=== PATIENT | male | born 1965 | race Caucasian/White ===

== ENCOUNTER 2017-01-28 13:29 | Emergency (ER) | payer OTHER ==
[2017-01-28] MEDS ORDERED: Sodium Chloride 0.9% 1,000 ML IV STA (14:31)
[2017-01-28 14:51] LABS: BASO % 0.7 % (0.0-2.0); EOS % 0.8 % (0.0-4.0); HEMATOCRIT 41.7 % (35.0-51.0); LYMPH % 35.8 % (20.0-40.0); MEAN CELL VOLUME 83.1 fL (80.0-94.0); MEAN CORPUSCULAR HEMOGLOBIN 26.6 pg (27.0-31.0); MEAN PLATELET VOLUME 9.4 fL (7.2-11.7); MONO # 0.2 K/uL (0.0-0.8); MONO % 4.1 % (0.0-10.0); NRBC % 0.1 % (0.0-2.0); RED CELL DISTRIBUTION WIDTH 12.8 % (11.5-14.5); URINE BILIRUBIN NEGATIVE (NEGATIVE); URINE BLOOD NEGATIVE (NEGATIVE); URINE COLOR Straw (YELLOW); URINE GLUCOSE (UA) NORMAL (Normal); URINE KETONE NEGATIVE (NEGATIVE); URINE LEUKOCYTE ESTERASE NEG Leu/uL (Negative); URINE PROTEIN NEGATIVE (NEGATIVE); URINE UROBILINOGEN NORMAL mg/dL (0.2-1.0); WBC URINE < 1 /hpf (0-5); WHITE BLOOD COUNT 5.5 K/uL (4.8-10.8)
[2017-01-28 15:10] LABS: ALCOHOL SERUM < 10 mg/dl (0-10)
--- NOTE | 2017-01-28 15:11 | C.PDOC ---
History Of Present Illness 52 year old male presents to the ED with complaints of feeling dizzy at work today. 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 He then had some apple juice with some improvement and came for further evaluation. He notes his last check up was a year ago with no abnormal findings and denies headache, nausea, vomiting, visual changes, or any other complaints at this time. Time Seen by Provider: 01/28/17 13:54 Chief Complaint (Nursing): Dizziness/Lightheaded History Per: Patient History/Exam Limitations: no limitations Onset/Duration Of Symptoms: Hrs Current Symptoms Are (Timing): Better Seizure Or Post-ictal Symptoms: None Fall Associated With With Symptoms: No Severity: Mild Past Medical History Reviewed: Historical Data, Nursing Documentation, Vital Signs Vital Signs: Last Vital Signs Temp 97.8 F 01/28/17 17:54 Pulse 58 L 01/28/17 17:54 Resp 16 01/28/17 17:54 BP 134/82 01/28/17 17:54 Pulse Ox 98 01/28/17 18:34 - Medical History PMH: Arthritis (Left Shoulder) - Appiterate Procedures TETANUS TOXOID ADMINIST (10/28/14) Family History: States: Unknown Family Hx - Social History Hx Tobacco Use: No Hx Alcohol Use: Yes Hx Substance Use: No - Immunization History Hx Tetanus Toxoid Vaccination: Yes (10/28/2014) Hx Influenza Vaccination: No Hx Pneumococcal Vaccination: No Review Of Systems Except As Marked, All Systems Reviewed And Found Negative. Constitutional: Negative for: Fever, Chills, Sweats Eyes: Negative for: Vision Change Cardiovascular: Negative for: Chest Pain Respiratory: Negative for: Shortness of Breath Gastrointestinal: Negative for: Nausea, Vomiting Neurological: Positive for: Dizziness. Negative for: Headache Physical Exam - Physical Exam Appears: Non-toxic, No Acute Distress Skin: Normal Color, Warm, Dry Head: Atraumatic, Normacephalic Eye(s): bilateral: Normal Inspection, EOMI, Other (No nystagmus) Oral Mucosa: Moist Neck: Supple Chest: Symmetrical, No Deformity Cardiovascular: Rhythm Regular, No Murmur Respiratory: Normal Breath Sounds, No Accessory Muscle Use, No Rales, No Rhonchi , No Wheezing Extremity: Normal ROM, No Deformity Neurological/Psych: Oriented x3, Normal Speech, Normal Cognition, Normal Motor, Normal Sensation Gait: Steady ED Course And Treatment - Laboratory Results Result Diagrams: 01/28/17 14:41 01/28/17 16:06 ECG: Interpreted By Me, Viewed By Me ECG Rhythm: Sinus Bradycardia ECG Interpretation: No Acute Changes Rate From EC O2 Sat by Pulse Oximetry: 98 (Room air) Pulse Ox Interpretation: Normal - Radiology CXR: Viewed By Me, Read By Radiologist CXR Interpretation: Yes: Other (7 mm nodular density within the right lung apex. No focal consolidation, significant pleural effusion, or definite pneumothorax identified.) - CT Scan/US CT Head w/o contrast Other Rad Studies (CT/US): Read By Radiologist, Radiology Report Reviewed CT/US Interpretation: Accession No. : [id number]. Patient Name / ID : KEVYN TELLEZ / [id number]. Exam Date : 01/28/2017 15:33:33 ( Approved ) . Study Comment : Sex / Age : M / 52Y. Creator : Shruthi Velasco MD. Dictator : Shruthi Velasco MD. Unbundler : Supervisor [employer] : Shruthi Velasco MD. Approver2 : Report Date : 01/28/2017 15:41:48. My Comment : . PROCEDURE: CT HEAD WITHOUT CONTRAST. HISTORY: dizzy. COMPARISON: None available. TECHNIQUE: Axial computed tomography images were obtained through the head/brain without intravenous contrast. Radiation dose: Total exam DLP = 742.72 mGy-cm. This CT exam was performed using one or more of the following dose reduction techniques: Automated exposure control, adjustment of the mA and/or kV according to patient size, and/or use of iterative reconstruction technique. FINDINGS: HEMORRHAGE: No intracranial hemorrhage. BRAIN: No mass effect or edema. The michelle-white matter differentiation appears intact.Please note that MRI with diffusion imaging is more sensitive in the detection of acute ischemic event. VENTRICLES: No hydrocephalus. CALVARIUM: Unremarkable. PARANASAL SINUSES: Mucosal thickening of ethmoid air cells. Remainder of the visualized paranasal sinuses appear clear. No air-fluid levels. MASTOID AIR CELLS: Unremarkable as visualized. No inflammatory changes. OTHER FINDINGS: None. IMPRESSION: No acute intracranial pathology identified. Progress Note: CT Head w/o contrast, CXR, EKG, Blood work, and Urinalysis ordered and reviewed. Patient treated with IV fluids. Upon reevaluation, patient is resting comfortably, walking with a steady gait, has no neuro deficits, and states he is no longer dizzy. Discussed with patient that he cannot go back to work until he is cleared by his PMD. Patient discharged home and copies of labs and EKG provided. Disposition - Disposition Disposition: HOME/ ROUTINE Disposition Time: 18:32 Condition: STABLE Additional Instructions: Follow up with PMD within 1-2 days. 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 Return to ED immediately if feel worse. Prescriptions: Meclizine [Meclizine*] 25 mg PO Q6 #30 tab Instructions: Dizziness (ED) - Clinical Impression Clinical Impression: Dizziness - PA / [employer] / Resident Statement MD/DO has reviewed & agrees with the documentation as recorded. - Scribe Statement The provider has reviewed the documentation as recorded by the Scribe Mellisa Sandoval. All medical record entries made by the Scribe were at my direction and personally dictated by me. I have reviewed the chart and agree that the record accurately reflects my personal performance of the history, physical exam, medical decision making, and the department course for this patient. I have also personally directed, reviewed, and agree with the discharge instructions and disposition.
--- NOTE | 2017-01-28 15:35 | RAD ---
HISTORY: dizzy COMPARISON: None available TECHNIQUE: Chest, one view. FINDINGS: LUNGS: No focal consolidation. 7 mm nodular density, right lung apex. Please note that chest x-ray has limited sensitivity for the detection of pulmonary masses. PLEURA: No significant pleural effusion identified. No definite pneumothorax . CARDIOVASCULAR: The cardiomediastinal silhouette appears within normal limits of size. OSSEOUS STRUCTURES: Degenerative changes of the spine. VISUALIZED UPPER ABDOMEN: Unremarkable. OTHER FINDINGS: None. IMPRESSION: 7 mm nodular density within the right lung apex. No focal consolidation, significant pleural effusion, or definite pneumothorax identified.
--- NOTE | 2017-01-28 15:43 | CT ---
PROCEDURE: CT HEAD WITHOUT CONTRAST. HISTORY: dizzy COMPARISON: None available. TECHNIQUE: Axial computed tomography images were obtained through the head/brain without intravenous contrast. Radiation dose: Total exam DLP = 742.72 mGy-cm. This CT exam was performed using one or more of the following dose reduction techniques: Automated exposure control, adjustment of the mA and/or kV according to patient size, and/or use of iterative reconstruction technique. FINDINGS: HEMORRHAGE: No intracranial hemorrhage. BRAIN: No mass effect or edema. The michelle-white matter differentiation appears intact.Please note that MRI with diffusion imaging is more sensitive in the detection of acute ischemic event. VENTRICLES: No hydrocephalus. CALVARIUM: Unremarkable. PARANASAL SINUSES: Mucosal thickening of ethmoid air cells. Remainder of the visualized paranasal sinuses appear clear. No air-fluid levels. MASTOID AIR CELLS: Unremarkable as visualized. No inflammatory changes. OTHER FINDINGS: None. IMPRESSION: No acute intracranial pathology identified.
[2017-01-28 16:12] LABS: CHLORIDE 103 mmol/L (98-107)
[2017-01-28 16:13] LABS: POTASSIUM 4.2 mmol/L (3.6-5.2); SODIUM 141 mmol/L (132-148)
[2017-01-28 16:15] LABS: AST/SGOT 30 U/L (17-59); CARBON DIOXIDE 26 mmol/L (22-30); GFR AFRICAN-AMERICAN > 60
[2017-01-28 16:16] LABS: ALB/GLOB RATIO 1.3 (1.0-2.1); ALKALINE PHOSPHATASE 63 U/L (38-126); ALT/SGPT 24 U/L (21-72); BLOOD UREA NITROGEN 10 mg/dL (9-20); CALCIUM 8.8 mg/dl (8.6-10.4); GLUCOSE,RANDOM 82 mg/dL (75-110); TOTAL PROTEIN 7.6 g/dL (6.3-8.3)
[2017-01-28 17:55] VITALS: BP 134/82; PULSE 58; RESP 16; TEMP 97.8
[2017-01-28 18:35] VITALS: O2SAT 98
--- NOTE | 2017-01-29 11:59 | CARD ---
APPROVED REPORT EKG Measurement Heart [id number] <Conclusion> Sinus bradycardia Otherwise normal ECG
== END 2017-01-28 18:40 | disposition home or self-care (01) ==
LOC: C.ER 13:29
DX: R42 Dizziness and giddiness (principal)
CPT/HCPCS: 70450; 71010; 80053; 80320; 80324; 80345; 80346; 80349; 80353; 80358; 80361; 81001; 82550; 82553; 83992; 84484; 85025; 85610; 85730; 93005; 96360; 99285; J7040